=== PATIENT | female | born 1955 | race Asian ===

== ENCOUNTER 2022-11-06 18:20 | Outpatient (CLI) | payer MEDICARE, OTHER | END 2022-11-06 23:59 | disposition left against medical advice (07) | LOC: EMS 18:20 | DX: S69.92XA Unspecified injury of left wrist, hand and finger(s), initial encounter (principal); W18.30XA Fall on same level, unspecified, initial encounter; Y92.009 Unspecified place in unspecified non-institutional (private) residence as the place of occurrence of the external cause ==

== ENCOUNTER 2023-06-27 08:19 | Outpatient (CLI) | payer MEDICARE | END 2023-06-27 23:59 | disposition critical access hospital (66) | LOC: EMS 08:19 | DX: R41.82 Altered mental status, unspecified (principal); E16.2 Hypoglycemia, unspecified; R17 Unspecified jaundice; R47.81 Slurred speech; R61 Generalized hyperhidrosis; R00.0 Tachycardia, unspecified | CPT/HCPCS: A0425; A0427 ==

== ENCOUNTER 2023-06-27 08:45 | Inpatient (IN) | payer MEDICARE ==
[2023-06-27] MEDS: THIAMINE INJ 100 MG, MAGNESIUM SULFATE 2 GM, MULTIVITAMIN 10 ML, FOLIC ACID INJ 1 MG in... IV STA (09:41)
[2023-06-27 09:45] LABS: BASOPHILS % (AUTO) 0.1 %; EOSINOPHILS % (AUTO) 0.2 %; HCT - HEMATOCRIT 30.9 % (37.0-47.0); HGB - HEMOGLOBIN 11.4 g/dL (12.0-16.0); LYMPHOCYTES % (AUTO) 2.4 %; MEAN CORPUSCULAR HEMOGLOBIN 34.3 pg (27.0-31.0); MEAN CORPUSCULAR HGB CONC 36.9 g/dL (32.0-36.0); MEAN CORPUSCULAR VOLUME 93.1 fL (81.0-99.0); MEAN PLATELET VOLUME 12.3 fL (7.9-10.8); MONOCYTES % (AUTO) 5.6 %; NEUTROPHILS % (AUTO) 90.5 %; PLT - PLATELET COUNT 44 10^3/uL (130-450); RED BLOOD COUNT 3.32 10^6/uL (4.20-5.40); RED CELL DISTRIBUTION WIDTH 15.9 % (12.0-15.0); WHITE BLOOD COUNT 11.9 x10^3/uL (4.8-10.8)
[2023-06-27 10:04] LABS: ETOH - ETHANOL < 10.0 mg/dL; LIPASE 40 U/L (11-82)
[2023-06-27 10:09] LABS: ALBUMIN 2.5 g/dL (3.2-5.5); ALBUMIN/GLOBULIN RATIO 0.8 (1.0-2.2); ALKALINE PHOSPHATASE 315 IU/L (42-121); ALT ALANINE AMINOTRANSFERASE 49 IU/L (10-60); AST ASPARTATE AMINOTRANSFERASE 110 IU/L (10-42); BILIRUBIN,TOTAL 8.1 mg/dL (0.2-1.0); BUN - BLOOD UREA NITROGEN 40 mg/dL (6-20); CALCIUM 7.8 mg/dL (8.5-10.3); CARBON DIOXIDE - CO2 25 mmol/L (21-32); CHLORIDE 76 mmol/L (101-111); CREATININE 4.5 mg/dL (0.6-1.3); GFR - MDRD 10 (>89); GLUCOSE 109 mg/dL (74-104); POTASSIUM 4.2 mmol/L (3.5-4.5); SODIUM 115 mmol/L (135-145); TOTAL PROTEIN 5.6 g/dL (6.4-8.9)
--- NOTE | 2023-06-27 10:11 | ED Physician Documentation ---
History of Present Illness - Stated complaint Stated Complaint: SLURRED SPEECH - Chief complaint Chief Complaint: General - History obtained from History obtained from: Patient, EMS - History of Present Illness Timing: Today - Additonal information Additional information: Angelic hatch is a 68-year-old female with regular and heavy alcohol use who has stopped drinking 6 days ago. She reports no untoward effects from the withdrawal itself she denies withdrawal seizure or hallucinations. She reports that she was not feeling well with bodyaches and decided to stop drinking. She has not eaten anything for 6 days. She has been drinking water. She denies any any medication use and works full-time as a counselor. The patient admits to prior section denies any allergies to medicines denies any medication use. Today the patient called her daughter was having a difficult time speaking and the medics were summoned to her house where they discovered a blood sugar of 38. The patient was given 500 mL of D10 with resolution of her symptoms. She is currently compos mentis and cooperative. Review of Systems Constitutional: reports: Myalgias, Fatigue, Sweats. denies: Fever, Chills Eyes: denies: Decreased vision Ears: denies: Ear pain Nose: denies: Rhinorrhea / runny nose, Congestion Throat: denies: Sore throat Cardiac: denies: Chest pain / pressure, Palpitations Respiratory: denies: Dyspnea, Cough GI: denies: Abdominal Pain, Nausea, Vomiting, Constipation, Diarrhea : denies: Dysuria, Frequency Skin: denies: Rash Musculoskeletal: denies: Neck pain, Back pain, Extremity pain Neurologic: reports: Difficulty speaking (resolved). denies: Generalized weakness, Focal weakness, Numbness PD PAST MEDICAL HISTORY - Past Medical History Past Medical History: Yes Other Past Medical History: Alcohol abuse - Past Surgical History Past Surgical History: No - Present Medications Home Medications: Ambulatory Orders Medication Instructions Recorded Confirmed No Known Home Medications 06/27/23 06/27/23 - Allergies Allergies/Adverse Reactions: Allergies Allergy/AdvReac Type Severity Reaction Status Date / Time No Known Drug Allergies Allergy Verified 06/27/23 08:56 - Social History Does the pt smoke?: No Smoking Status: Never smoker Does the pt drink ETOH?: Yes ETOH Use: Liquor Does the pt have substance abuse?: No PD ED PE NORMAL - Vitals Vital signs reviewed: Yes (hypesrtensive ) - General General: Alert and oriented X 3, No acute distress, Well developed/nourished, Other (Thin 68 y/o female alert and cooperative with scleral icterus mild and parched mucous membranes. ) - HEENT HEENT: Atraumatic, PERRL, EOMI - Neck Neck: Supple, no meningeal sign, No bony TTP - Cardiac Cardiac: RRR, No murmur - Respiratory Respiratory: No respiratory distress, Clear bilaterally - Abdomen Abdomen: Normal bowel sounds, Soft, Non tender, Non distended, No organomegaly - Back Back: No CVA TTP, No spinal TTP - Derm Derm: Normal color, Warm and dry, No rash, Other (skin tenting is present ) - Extremities Extremities: No deformity, No edema - Neuro Neuro: Alert and oriented X 3, counseling department chair 2-12 intact, No motor deficit, No sensory deficit, Normal speech Eye Opening: Spontaneous Motor: Obeys Commands Verbal: Oriented GCS Score: 15 - Psych Psych: Normal mood, Normal affect Results - Vitals Vitals: Vital Signs - 24 hr 06/27/23 06/27/23 06/27/23 08:46 10:53 12:11 Temperature 36.6 C Heart Rate 100 104 H 93 Respiratory 16 16 Rate Blood Pressure 125/90 H 108/65 110/85 H O2 Saturation 98 97 99 Oxygen O2 Source Room air - Labs Labs: Laboratory Tests 06/27/23 06/27/23 06/27/23 09:37 09:37 09:37 WBC 11.9 H RBC 3.32 L Hgb 11.4 L Hct 30.9 L MCV 93.1 MCH 34.3 H MCHC 36.9 H RDW 15.9 H Plt Count 44 L MPV 12.3 H Neut # (Auto) Not Reportable Lymph # (Auto) Not Reportable [place] # (Auto) Not Reportable Eos # (Auto) Not Reportable Baso # (Auto) Not Reportable Absolute Nucleated RBC Not Reportable Total Counted 100 Band Neuts % (Manual) 34 H Abnorm Lymph % (Manual) 0 Metamyelocytes % 11 H Nucleated RBC % Not Reportable Neutrophils # (Manual) 9.6 H Lymphocytes # (Manual) 0.7 L Monocytes # (Manual) 0.2 Eosinophils # (Manual) 0.0 Basophils # (Manual) 0.0 Differential Comment MANUAL DIFFERENTIAL Manual Slide Review Indicated WBC Morphology 1+ TOXIC GRANULATION Platelet Estimate DECREASED (<130,000) Platelet Morphology 1+ LARGE PLATELETS RBC Morph Micro Appear 1+ TARGET CELLS PT 14.1 H INR 1.3 H Sodium 115 L* Potassium 4.2 Chloride 76 L* Carbon Dioxide 25 Anion Gap 14.0 H BUN 40 H Creatinine 4.5 H Estimated GFR (MDRD) 10 L Glucose 109 H Lactic Acid Calcium 7.8 L Total Bilirubin 8.1 H AST 110 H ALT 49 Alkaline Phosphatase 315 H Total Protein 5.6 L Albumin 2.5 L Globulin 3.1 Albumin/Globulin Ratio 0.8 L Lipase 40 Urine Color Urine Clarity Urine pH Ur Specific [place] Urine Protein Urine Glucose (UA) Urine Ketones Urine Occult Blood Urine Nitrite Urine Bilirubin Urine Urobilinogen Ur Leukocyte Esterase Urine RBC Urine WBC Ur Epithelial Cells Ur Squamous Epith Cells Urine Bacteria Urine Casts Ur Microscopic Review Urine Culture Comments Ethyl Alcohol < 10.0 06/27/23 06/27/23 10:36 11:00 WBC RBC Hgb Hct MCV MCH MCHC RDW Plt Count MPV Neut # (Auto) Lymph # (Auto) [place] # (Auto) Eos # (Auto) Baso # (Auto) Absolute Nucleated RBC Total Counted Band Neuts % (Manual) Abnorm Lymph % (Manual) Metamyelocytes % Nucleated RBC % Neutrophils # (Manual) Lymphocytes # (Manual) Monocytes # (Manual) Eosinophils # (Manual) Basophils # (Manual) Differential Comment Manual Slide Review WBC Morphology Platelet Estimate Platelet Morphology RBC Morph Micro Appear PT INR Sodium Potassium Chloride Carbon Dioxide Anion Gap BUN Creatinine Estimated GFR (MDRD) Glucose Lactic Acid 1.7 Calcium Total Bilirubin AST ALT Alkaline Phosphatase Total Protein Albumin Globulin Albumin/Globulin Ratio Lipase Urine Color YELLOW Urine Clarity CLOUDY Urine pH 6.5 Ur Specific [place] 1.015 Urine Protein 100 H Urine Glucose (UA) NEGATIVE Urine Ketones NEGATIVE Urine Occult Blood MODERATE H Urine Nitrite NEGATIVE Urine Bilirubin MODERATE H Urine Urobilinogen 1 (NORMAL) Ur Leukocyte Esterase MODERATE H Urine RBC 11-25 H Urine WBC >25 H Ur Epithelial Cells FEW Transitional Ur Squamous Epith Cells NONE SEEN Urine Bacteria Many H Urine Casts 0-2 Granular Casts Ur Microscopic Review INDICATED Urine Culture Comments INDICATED Ethyl Alcohol Procedures - IVC sono (time) 0900 Bedside IVC sono: IVC measures (cm) (0.93), Dehydration (est 2 liter deficit after 500ml given) PD Medical Decision Making - ED course Complexity details: reviewed results, re-evaluated patient, considered differential, d/w patient Reviewed Lab Results: We reviewed a complete blood count showing an elevated white blood cell count of 11.9 depressed hemoglobin and hematocrit 11.4 and 30.9 respectively platelet count is low at 44,000 there are 34% bands present in the specimen. The MCV is normal at 93.1. The RDW elevated at 15.9. I interpret these laboratory results to indicate a level of anemia especially with the thrombocytopenia this is likely direct effects of alcohol on the patient's bone marrow. The 34% bands are concerning for occult infection. Chemistries show a critically low sodium at 115 and critically low chloride at 76 and normal potassium at 4.2 and a carbon dioxide of 25 the BUN is elevated at 40 creatinine elevated at 4.5 calcium low at 7.8 total bilirubin markedly elevated to 8.1 AST elevated at 110 alkaline phosphatase elevated 315 total protein is low at 5.6 albumin low at 2.5. Albumin to globulin ratio low at 0.8. These laboratory chemistry results are concerning for marked hyponatremia likely related to alcohol use. There are no comparisons for the laboratory studies on this patient. Her liver functions are consistent with alcoholic induced hepatitis. Without comparison for kidney function it is difficult to determine whether she may just have an element of acute kidney injury related to dehydration. Ethyl alcohol is less than 10. My interpretation of these laboratory results are a critical illness with critically low sodium and evidence of acute kidney injury along with evidence of alcoholic liver disease. These laboratory results indicate a need for ongoing treatment and admission to the hospital. ED course: 68-year-old Angelic also with profound hyponatremia likely related to alcoholic liver disease. Here in the emergency department she is administered a banana bag and arrangements are made for admission to the hospital.Today I am not finding evidence of acute alcohol withdrawal syndrome and this is consistent with the patient's history of no alcohol for 6 days. Departure - Departure Disposition: 67 [facility] DC/Xfer Clinical Impression: Hyponatremia, Acute alcoholic liver disease, Acute kidney injury, Hypoglycemia, ketotic UTI (urinary tract infection) Qualifiers: Urinary tract infection type: acute cystitis Hematuria presence: with hematuria Qualified Code(s): N30.01 - Acute cystitis with hematuria Condition: Fair Forms: PCP List
[2023-06-27 10:12] LABS: SLIDE REVIEW? Indicated
[2023-06-27 10:19] LABS: ABNORMAL LYMPHS % (MANUAL) 0 %
[2023-06-27 10:23] LABS: BAND NEUTROPHILS % (MANUAL) 34 %; LYMPHOCYTES # (MANUAL) 0.7 10^3/uL (1.5-3.5); LYMPHOCYTES % (MANUAL) 6 %; METAMYELOCYTES % (MANUAL) 11 %; MONOCYTES # (MANUAL) 0.2 10^3/uL (0.0-1.0); NEUTROPHILS # (MANUAL) 9.6 10^3/uL (1.5-6.6)
[2023-06-27 10:28] LABS: DIFFERENTIAL COMMENT MANUAL DIFFERENTIAL; PLATELET ESTIMATE, MANUAL DECREASED (<130,000) (NORMAL); PLATELET MORPHOLOGY 1+ LARGE PLATELETS (NORMAL); WBC MORPHOLOGY (MULTIPLE) 1+ TOXIC GRANULATION (NORMAL)
[2023-06-27 10:57] LABS: INR 1.3 (0.8-1.2); PT - PROTHROMBIN TIME 14.1 secs (9.9-12.6)
[2023-06-27 11:04] LABS: BILIRUBIN,URINE MODERATE (NEGATIVE); GLUCOSE, URINE (UA) NEGATIVE (NEGATIVE); KETONES,URINE (UA) NEGATIVE (NEGATIVE); LEUKOCYTE ESTERASE, URINE MODERATE (NEGATIVE); NITRITE,URINE NEGATIVE (NEGATIVE); OCCULT BLOOD,URINE MODERATE (NEGATIVE); PH,URINE 6.5 PH (5.0-7.5); PROTEIN,URINE 100 mg/dL (NEGATIVE); UROBILINOGEN,URINE 1 (NORMAL) E.U./dL (NORMAL)
[2023-06-27 11:08] LABS: CLARITY,URINE CLOUDY (CLEAR)
[2023-06-27 11:15] LABS: SQUAMOUS EPITHELIAL CELL,UR NONE SEEN (<= Few); WBC,URINE >25 /HPF (0-5)
[2023-06-27 11:16] LABS: BACTERIA,URINE Many /HPF (None Seen); CASTS, URINE 0-2 Granular Casts /LPF; EPITHELIAL CELLS,UR FEW Transitional /HPF (<= Few)
--- NOTE | 2023-06-27 11:34 | XRAY Report ---
PROCEDURE: Chest 1V INDICATIONS: chest pain TECHNIQUE: One view of the chest was acquired. COMPARISON: None. FINDINGS: Surgical changes and devices: None. Lungs and pleura: No pleural effusions or pneumothorax. Lungs are clear. Mediastinum: Mediastinal contours appear normal. Heart size is normal. Bones and chest wall: No suspicious bony lesions. Overlying soft tissues appear unremarkable. IMPRESSION: No acute cardiopulmonary process. Reviewed by: Dylan Romero MD on 06/27/2023 11:33 AM PDT Approved by: Dylan Romero MD on 06/27/2023 11:33 AM PDT Station ID: [id number]
--- NOTE | 2023-06-27 12:32 | HISTORY & PHYSICAL EXAMINATION ---
Chief Complaint - Chief Complaint Chief Complaint: Slurred Speech History of Present Illness - Admitted From Admitted From:: Emergency Room - History Obtained From Records Reviewed: Yes History obtained from: Patient and Emergency Room Physician - History of Present Illness HPI Comment/Other: Angelic Potter is a 68-year-old woman who presented to the emergency room with a chief complaint of slurred speech. She reports that she stopped eating a pproximately three days ago. She reports she drinks two gin and tonics each night. Patient reportedly called her daughter and informed her shes having difficulty speaking. Her daughter called EMS service and when EMS service arrived, they found her blood sugar to be 38. She was given 500 mL of 10 with resolution of her symptoms.Patient is alert and oriented person time place and situation. She denies fever, chills. She denies abdominal pain. She has no complaints at this time. Initial laboratory up in emergency room revealed a serum sodium of 115, and AI and gap of 14, CM creatinine a 4.5, BUN 40 and a serum glucose of 109. AST is elevated at 110, ALT is 49 and Ill be when its 2.5. PT is 14.1 and INR is 1.3.Blood count was elevated at 11.9 and hematocrit was 30.9. Platelet count is 44Blood cultures were drawn in the emergency room and are pending.Patient received 1 g of ceftriaxone in the emergency room. History - Past Medical History Other Past Medical History: Alcohol abuse Meds/Allgy - Home Medications Home Medications: Ambulatory Orders Medication Instructions Recorded Confirmed No Known Home Medications 06/27/23 06/27/23 - Allergies Allergies/Adverse Reactions: Allergies Allergy/AdvReac Type Severity Reaction Status Date / Time No Known Drug Allergies Allergy Verified 06/27/23 08:56 Review of Systems - Constitutional Constitutional: reports: Fatigue - Neurological Neurological: reports: General weakness, Slurred speech Exam - Vital Signs Vital Signs: Vital Signs x48h Temp Pulse Resp BP Pulse Ox 06/27/23 12:11 93 110/85 H 99 06/27/23 10:53 104 H 16 108/65 97 06/27/23 08:46 36.6 C 100 16 125/90 H 98 - Physical Exam General Appearance: positive: No acute distress, Alert Eyes Bilateral: positive: Other (Positive mild scleral icterus) Neck: positive: No JVD Conclusion/Plan - Problem List (1) Hyponatremia Conclusion/Plan: Patient presented to the emergency room with a serum sodium of 115 she has severe hyponatremia and warrants monitoring in the intensive care unit. Plan is to admit her to the intensive care unit for close hemodynamic monitoring and follow serum sodium serially. This is most likely a chronic process. Given the severity of her hyponatremia she is at risk for seizure and osmotic demyelination syndrome. It is also likely that patient abuses alcohol and her lack of protein increases the risk of osmotic demyelinization syndrome. (2) Acute kidney injury Conclusion/Plan: Etiology is not clear but most likely related to poor perfusion/dehydration. Patient reports she has little if anything to eat over the last 3 days. Plan is hydration with normal saline. Rate of normal saline will be conserva tive in the at first to determine how quickly her serum sodium increases with IV fluids. Continue to monitor BUNs/creatinine. Avoid nephrotoxic agents. (3) Elevated transaminase level Conclusion/Plan: Etiology of liver failure is not clear but may be related to the fact the patient has not been eating and chronic alcohol abuse. Continue to monitor transaminases. Patient encouraged to eat her meals. (4) UTI (urinary tract infection) Conclusion/Plan: White blood cell count on admission was 11.9 K and urinalysis consistent with a urinary tract infection. Continue ceftriaxone 1 g daily. Qualifiers: Urinary tract infection type: acute cystitis Hematuria presence: with hematuria Qualified Code(s): N30.01 - Acute cystitis with hematuria (5) Thrombocytopenia Conclusion/Plan: Platelet count is 44 K. Continue to monitor. (6) Anemia Conclusion/Plan: Hemoglobin/hematocrit is 11.4/30.9. Etiology is not clear but may be related to poor nutrition and critical illness. Continue to monitor. - Lab Results Fish Bones: 06/27/23 09:37 06/28/23 04:38
[2023-06-27] MEDS: cefTRIAXone 1 GM in SODIUM CHLORIDE 0.9% MINIBAG 100 ML IV STA (13:06)
[2023-06-27] MEDS: SODIUM CHLORIDE 0.9% 1,000 ML IV SCH (13:06)
[2023-06-27] MEDS: SODIUM CHLORIDE FLUSH 0.9% 10 ML SYRINGE IVP SCH (16:14)
[2023-06-27] MEDS: ethyl alcohoL 62% SWAB AMPULE NAS SCH (22:12)
[2023-06-27 22:53] LABS: ALBUMIN 2.4 g/dL (3.2-5.5); ALBUMIN/GLOBULIN RATIO 0.9 (1.0-2.2); BILIRUBIN,TOTAL 8.5 mg/dL (0.2-1.0); CALCIUM 7.7 mg/dL (8.5-10.3); CREATININE 4.2 mg/dL (0.6-1.3); POTASSIUM 4.6 mmol/L (3.5-4.5); TOTAL PROTEIN 5.2 g/dL (6.4-8.9)
--- NOTE | 2023-06-27 23:36 | PROVIDER PROGRESS NOTE ---
Finished Garment Inspector Note - Finished Garment Inspector Note Finished Garment Inspector Note: nurse called Na down to 114 chart reviewed plan of care not showing in HP but ED note and orders and labs reviewed Pt admitted this morning with Na of 115 received NS IVF improved to 118-117 now down to 114 again. Per nurse, pt completely awake and alert x 3 with no Ams Pt also has positive b/c for e coli possible diagnosis of uti on rocephin vss and no AMS pt has received iv alb, will increase ivf rate to 125 ad recheck in 2 hours. if furhter deterioration or AMS, can consider nephrolog consult and / or hypertonic saline. will request neurochecks, pt in ICU
--- NOTE | 2023-06-27 23:43 | PROVIDER PROGRESS NOTE ---
Paver Note - Paver Note Paver Note: new orders are being entered by Dr. Mccartney. Nurse was unaware. fluid has been changed to d5NS at 125. asked nurse to contact Dr. Mccartney to continue with his original plan of care and moving forward and to avoid conflicting orders. discussed with nurse in detait
[2023-06-28] MEDS: ALBUMIN 25% 12.5 GM/50 ML VIAL IV STA (00:20)
[2023-06-28] MEDS: DEXTROSE 5%-0.9% NACL 1,000 ML IV SCH (00:29)
[2023-06-28] MEDS: ALBUMIN 25% 12.5 GM/50 ML VIAL IV ONE (01:32)
[2023-06-28 01:53] LABS: CALCIUM 7.2 mg/dL (8.5-10.3); CREATININE 4.3 mg/dL (0.6-1.3); POTASSIUM 4.5 mmol/L (3.5-4.5)
[2023-06-28 08:29] LABS: CALCIUM, IONIZED 0.93 mmol/L (1.15-1.33); VBG PH 7.489 (7.31-7.41)
[2023-06-28 08:45] LABS: INR 1.4 (0.8-1.2); PT - PROTHROMBIN TIME 15.2 secs (9.9-12.6)
[2023-06-28 08:46] LABS: MAGNESIUM 1.8 mg/dL (1.7-2.3)
[2023-06-28 08:53] LABS: PARTIAL THROMBOPLASTIN TIME 31.7 secs (24.9-33.3)
[2023-06-28 09:03] LABS: ALBUMIN 2.3 g/dL (3.2-5.5); ALKALINE PHOSPHATASE 309 IU/L (42-121); ALT ALANINE AMINOTRANSFERASE 36 IU/L (10-60); AST ASPARTATE AMINOTRANSFERASE 83 IU/L (10-42); BILIRUBIN,TOTAL 8.5 mg/dL (0.2-1.0); BUN - BLOOD UREA NITROGEN 41 mg/dL (6-20); CALCIUM 7.4 mg/dL (8.5-10.3); CARBON DIOXIDE - CO2 21 mmol/L (21-32); CHLORIDE 85 mmol/L (101-111); CREATININE 4.4 mg/dL (0.6-1.3); GFR - MDRD 10 (>89); GLUCOSE 96 mg/dL (74-104); PHOSPHORUS < 1.0 mg/dL (2.5-5.0); SODIUM 116 mmol/L (135-145); TOTAL PROTEIN 4.6 g/dL (6.4-8.9)
[2023-06-28] MEDS: ALBUMIN 25% 12.5 GM/50 ML VIAL IV SCH ×2 (10:03→13:39)
--- NOTE | 2023-06-28 12:12 | XRAY Report ---
PROCEDURE: Chest for Line Placement INDICATIONS: Status post central line placement. TECHNIQUE: One view of the chest was acquired. COMPARISON: 06/27/2023. FINDINGS: Surgical changes and devices: Right central venous catheter with tip projecting over the cavoatrial junction versus proximal right atrium.. Lungs and pleura: No pleural effusions or pneumothorax. Mild left basilar atelectasis. Lungs are oth erwise clear. Mediastinum: Mediastinal contours appear normal. Heart size is normal. Bones and chest wall: No suspicious bony lesions. Overlying soft tissues appear unremarkable. IMPRESSION: Right central venous catheter with tip projecting over the cavoatrial junction versus proximal right atrium. Reviewed by: Bernabe Marin MD on 06/28/2023 12:11 PM PDT Approved by: Bernabe Marin MD on 06/28/2023 12:11 PM PDT Station ID: [id number]
--- NOTE | 2023-06-28 12:30 | PROVIDER PROGRESS NOTE ---
Assessment/Plan - Problem List (1) Hyponatremia Assessment/Plan: Patient presented to the emergency room with a serum sodium of 115 she has severe hyponatremia and warrants monitoring in the intensive care unit. Plan is to admit her to the intensive care unit for close hemodynamic monitoring and follow serum sodium serially. This is most likely a chronic process. Given the severity of her hyponatremia she is at risk for seizure and osmotic demyelination syndrome. It is also likely that patient abuses alcohol and her lack of protein increases the risk of osmotic demyelinization syndrome. Continue to monitor serum sodium serially and replace sodium as needed with 3% saline and normal saline. (2) Acute kidney injury Conclusion/Plan: Etiology is not clear but most likely related to poor perfusion/dehydration. Patient reports she has little if anything to eat over the last 3 days.I cannot exclude hepatorenal syndrome at this time. Plan is hydration with normal saline. Rate of normal saline will be conservative in the at first to determine how quickly her serum sodium increases with IV fluids. Continue to monitor BUNs/creatinine. Avoid nephrotoxic agents. Treatment has been initiated with albumin and norepinephrine. Patient currently has a life-threatening illness requiring monitoring in the ICU setting. Given her degree of renal failure and liver dysfunction she has a life-threatening condition and warrants continued monitoring in intensive care unit. (3) Elevated transaminase level Conclusion/Plan: Etiology of liver failure is not clear but may be related to the fact the patient has not been eating and chronic alcohol abuse. Continue to monitor transaminases. Patient encouraged to eat her meals. (4) UTI (urinary tract infection) Conclusion/Plan: White blood cell count on admission was 11.9 K and urinalysis consistent with a urinary tract infection. Continue ceftriaxone 1 g daily. Qualifiers: Urinary tract infection type: acute cystitis Hematuria presence: with hematuria Qualified Code(s): N30.01 - Acute cystitis with hematuria (5) Thrombocytopenia Conclusion/Plan: Platelet count is 44 K. Continue to monitor. (6) Anemia Conclusion/Plan: Hemoglobin/hematocrit is 11.4/30.9. Etiology is not clear but may be related to poor nutrition and critical illness. Continue to monitor. Time spent excluding time for procedures: 42 minutes. - Current Meds Current Meds: Current Medications Generic Name Dose Route Start Last Admin Trade Name Freq PRN Reason Stop Dose Admin Alcohol 1 amp 06/27/23 21:00 06/28/23 10:03 Ethyl Alcohol 62% Swab Ampule NATHAN 1 amp BID JAME Administration Dextrose/Sodium Chloride 1,000 mls @ 125 mls/hr 06/27/23 23:45 06/28/23 00:29 D5ns IV 125 mls/hr .Q8H JAME Administration Albumin Human 12.5 gm in 50 mls @ 50 mls/hr 06/28/23 10:00 06/28/23 10:03 Albuminar-25 IV 06/30/23 04:59 50 mls/hr Q6H JAME Administration Sodium Chloride 10 ml 06/27/23 17:00 06/28/23 10:03 Sodium Chloride Flush 0.9% 10 Ml Syringe IVP 10 ml 0100,0900,1700 JAME Administration - Lab Result Fish Bone Diagrams: 06/27/23 09:37 06/28/23 21:30 - Additional Planning My Orders: My Active Orders 06/27/23 12:35 Activity Orders [RC] Q2HR IO [RC] IOSHIFT Incentive Spirometry - RT [RC] .tid Initiate Bowel Care Protocol [RC] .protocol Initiate Line Care Protocol [RC] QSCOFT Initiate Personal Care Protoco [RC] .protocol Initiate Pneumonia Vaccine Scr [RC] ONCE Oxygen Therapy [RC] .PRN Vital Signs [RC] Q1H Sodium Chloride Flush 0.9% [Normal Saline Flush 0.9%] 10 ml IVP PRN PRN Code Status [OTHERS] Routine Condition of Patient [OTHERS] Routine DVT Prophylaxis [OTHERS] Routine 06/27/23 12:41 SCDs [RC] QSHIFT 06/27/23 Dinner Regular Diet [DIET] 06/27/23 17:00 Sodium Chloride Flush 0.9% [Normal Saline Flush 0.9%] 10 ml IVP 0100,0900,1700 06/27/23 20:15 Blood Glucose Checks - Eating [RC] 0800,1200,1700,2100 Initiate Hypoglycemia Protocol [RC] .protocol 06/27/23 21:00 ethyl alcohoL 62% swab [NoZin] 1 amp NATHAN BID 06/27/23 23:07 Fluid Restriction [RC] IOSHIFT 06/27/23 23:09 Daily Weight [RC] 0600 Miscellaenous Nursing Order [RC] QSHIFT 06/27/23 23:45 Dextrose 5%-0.9% NaCl [D5ns] 1,000 ml IV 125 mls/hr 06/28/23 10:00 Albumin 25% [Albuminar-25] 12.5 gm in 50 ml IV Q6H Albumin 25% [Albuminar-25] 12.5 gm in 50 ml IV Q6H 06/28/23 10:34 Initiate Line Care Protocol [RC] QSHIFT 06/28/23 13:00 cefTRIAXone [Rocephin] 1 gm Sodium Chloride 0.9% Minibag [Normal Saline 0.9% Minibag] 100 ml IV 1300 06/29/23 08:30 CBC - COMP BLD CT W/AUTO DIFF [HEME] Routine Subjective - Subjective Patient Reports: Other (Alert. Denies chest pain and shortness of breath. Complains of abdominal discomfort most consistent with gas pain.) Objective Vital Signs: Vital Signs - 24 hr 06/27/23 06/27/23 06/27/23 13:35 15:00 16:00 Temperature 36.7 C Heart Rate [ 99 99 100 Brachial] Heart Rate [ Monitoring electrodes] Respiratory 16 18 20 Rate Blood Pressure 124/82 H 118/79 125/78 [Left Brachial artery] O2 Saturation 98 98 99 06/27/23 06/27/23 06/27/23 17:00 18:00 19:00 Temperature 36.8 C 36.9 C Heart Rate [ 103 H 109 H 108 H Brachial] Heart Rate [ Monitoring electrodes] Respiratory 17 20 11 L Rate Blood Pressure 118/88 H 110/59 L 103/69 [Left Brachial artery] O2 Saturation 97 100 96 06/27/23 06/27/23 06/27/23 20:00 21:00 22:00 Temperature 37.1 C Heart Rate [ 106 H 96 92 Brachial] Heart Rate [ Monitoring electrodes] Respiratory 16 11 L 19 Rate Blood Pressure 109/65 99/61 108/67 [Left Brachial artery] O2 Saturation 99 97 97 06/27/23 06/28/23 06/28/23 23:00 00:00 02:00 Temperature 37.1 C Heart Rate [ 99 Brachial] Heart Rate [ 102 H 110 H Monitoring electrodes] Respiratory 28 H 17 13 Rate Blood Pressure 100/52 L 102/77 101/58 L [Left Brachial artery] O2 Saturation 97 98 94 06/28/23 06/28/23 06/28/23 05:00 06:00 07:00 Temperature 37.1 C Heart Rate [ Brachial] Heart Rate [ 109 H 110 H 101 H Monitoring electrodes] Respiratory 19 15 16 Rate Blood Pressure 101/58 L 107/69 99/66 [Left Brachial artery] O2 Saturation 84 L 95 95 06/28/23 06/28/23 06/28/23 08:00 09:00 10:18 Temperature 36.7 C Heart Rate [ Brachial] Heart Rate [ 110 H 105 H 102 H Monitoring electrodes] Respiratory 12 20 17 Rate Blood Pressure 98/85 H 105/75 108/68 [Left Brachial artery] O2 Saturation 93 06/28/23 06/28/23 06/28/23 11:00 11:10 11:15 Temperature Heart Rate [ Brachial] Heart Rate [ 100 100 101 H Monitoring electrodes] Respiratory 17 17 16 Rate Blood Pressure 115/70 105/68 [Left Brachial artery] O2 Saturation 96 97 99 Oxygen O2 Source Room air I&O (Last 24 Hrs): Intake and Output Totals x24h 06/26/23 06/27/23 06/28/23 23:59 23:59 23:59 Intake Total 1833.95 1182.25 Output Total 100 Balance 1833.95 1082.25 General: Alert, Oriented x3, No acute distress HEENT: Atraumatic Neck: Supple, No JVD Lymphatic: no adenopathy Neuro: Alert, Focal Deficits Cardiovascular: Other (Positive S1-S2 no extra heart sounds.) Respiratory: Other (Good air exchange in all lung meek no wheezing no crackles) Abdomen: Other (Positive bowel sounds. Soft nontender no guarding no rebound.) Extremities: No cyanosis, No edema Skin: No rashes - Results Results: Laboratory Results WBC 11.9 x10^3/uL (4.8-10.8) H 06/27/23 09:37 RBC 3.32 10^6/uL (4.20-5.40) L 06/27/23 09:37 Hgb 11.4 g/dL (12.0-16.0) L 06/27/23 09:37 Hct 30.9 % (37.0-47.0) L 06/27/23 09:37 MCV 93.1 fL (81.0-99.0) 06/27/23 09:37 MCH 34.3 pg (27.0-31.0) H 06/27/23 09:37 MCHC 36.9 g/dL (32.0-36.0) H 06/27/23 09:37 RDW 15.9 % (12.0-15.0) H 06/27/23 09:37 Plt Count 44 10^3/uL (130-450) L 06/27/23 09:37 MPV 12.3 fL (7.9-10.8) H 06/27/23 09:37 Neut # (Auto) Not Reportable 06/27/23 09:37 Lymph # (Auto) Not Reportable 06/27/23 09:37 [place] # (Auto) Not Reportable 06/27/23 09:37 Eos # (Auto) Not Reportable 06/27/23 09:37 Baso # (Auto) Not Reportable 06/27/23 09:37 Absolute Nucleated RBC Not Reportable 06/27/23 09:37 Total Counted 100 06/27/23 09:37 Band Neuts % (Manual) 34 % (0-10) H 06/27/23 09:37 Abnorm Lymph % (Manual) 0 % 06/27/23 09:37 Metamyelocytes % 11 % (-0) H 06/27/23 09:37 Nucleated RBC % Not Reportable 06/27/23 09:37 Neutrophils # (Manual) 9.6 10^3/uL (1.5-6.6) H 06/27/23 09:37 Lymphocytes # (Manual) 0.7 10^3/uL (1.5-3.5) L 06/27/23 09:37 Monocytes # (Manual) 0.2 10^3/uL (0.0-1.0) 06/27/23 09:37 Eosinophils # (Manual) 0.0 10^3/uL (0-0.7) 06/27/23 09:37 Basophils # (Manual) 0.0 10^3/uL (0-0.1) 06/27/23 09:37 Differential Comment MANUAL DIFFERENTIAL 06/27/23 09:37 Manual Slide Review Indicated 06/27/23 09:37 WBC Morphology 1+ TOXIC GRANULATION (NORMAL) 06/27/23 09:37 Platelet Estimate DECREASED (<130,000) (NORMAL) 06/27/23 09:37 Platelet Morphology 1+ LARGE PLATELETS (NORMAL) 06/27/23 09:37 RBC Morph Micro Appear 2+ ANISOCYTOSIS (NORMAL) 2+ TEARDROP CELLS (NORMAL) 1+ TARGET CELLS (NORMAL) 06/27/23 09:37 RBC Morph Micro Appear 2+ ANISOCYTOSIS (NORMAL) 2+ TEARDROP CELLS (NORMAL) 1+ TARGET CELLS (NORMAL) 06/27/23 09:37 RBC Morph Micro Appear 2+ ANISOCYTOSIS (NORMAL) 2+ TEARDROP CELLS (NORMAL) 1+ TARGET CELLS (NORMAL) 06/27/23 09:37 PT 15.2 secs (9.9-12.6) H 06/28/23 08:22 INR 1.4 (0.8-1.2) H 06/28/23 08:22 APTT 31.7 secs (24.9-33.3) 06/28/23 08:22 VBG pH 7.489 (7.31-7.41) H 06/28/23 08:22 Ionized Calcium 0.93 mmol/L (1.15-1.33) L 06/28/23 08:22 Sodium 116 mmol/L (135-145) L* 06/28/23 08:22 Potassium 4.0 mmol/L (3.5-4.5) 06/28/23 08:22 Chloride 85 mmol/L (101-111) L 06/28/23 08:22 Carbon Dioxide 21 mmol/L (21-32) 06/28/23 08:22 Anion Gap 10.0 (6-13) 06/28/23 08:22 BUN 41 mg/dL (6-20) H 06/28/23 08:22 Creatinine 4.4 mg/dL (0.6-1.3) H 06/28/23 08:22 Estimated GFR (MDRD) 10 (>89) L 06/28/23 08:22 Glucose 96 mg/dL (74-104) 06/28/23 08:22 POC Whole Bld Glucose 125 mg/dL (70 - 100) H 06/28/23 07:49 Lactic Acid 1.7 mmol/L (0.5-2.2) 06/27/23 11:00 Calcium 7.4 mg/dL (8.5-10.3) L 06/28/23 08:22 Phosphorus < 1.0 mg/dL (2.5-5.0) L* 06/28/23 08:22 Magnesium 1.8 mg/dL (1.7-2.3) 06/28/23 08:22 Total Bilirubin 8.5 mg/dL (0.2-1.0) H 06/28/23 08:22 AST 83 IU/L (10-42) H 06/28/23 08:22 ALT 36 IU/L (10-60) 06/28/23 08:22 Alkaline Phosphatase 309 IU/L (42-121) H 06/28/23 08:22 Total Protein 4.6 g/dL (6.4-8.9) L 06/28/23 08:22 Albumin 2.3 g/dL (3.2-5.5) L 06/28/23 08:22 Globulin 2.3 g/dL (2.1-4.2) 06/28/23 08:22 Albumin/Globulin Ratio 1.0 (1.0-2.2) 06/28/23 08:22 Lipase 40 U/L (11-82) 06/27/23 09:37 Urine Color YELLOW 06/27/23 10:36 Urine Clarity CLOUDY (CLEAR) 06/27/23 10:36 Urine pH 6.5 PH (5.0-7.5) 06/27/23 10:36 Ur Specific [place] 1.015 (1.002-1.030) 06/27/23 10:36 Urine Protein 100 mg/dL (NEGATIVE) H 06/27/23 10:36 Urine Glucose (UA) NEGATIVE mg/dL (NEGATIVE) 06/27/23 10:36 Urine Ketones NEGATIVE mg/dL (NEGATIVE) 06/27/23 10:36 Urine Occult Blood MODERATE (NEGATIVE) H 06/27/23 10:36 Urine Nitrite NEGATIVE (NEGATIVE) 06/27/23 10:36 Urine Bilirubin MODERATE (NEGATIVE) H 06/27/23 10:36 Urine Urobilinogen 1 (NORMAL) E.U./dL (NORMAL) 06/27/23 10:36 Ur Leukocyte Esterase MODERATE (NEGATIVE) H 06/27/23 10:36 Urine RBC 11-25 /HPF (0-5) H 06/27/23 10:36 Urine WBC >25 /HPF (0-5) H 06/27/23 10:36 Ur Epithelial Cells FEW Transitional /HPF (<= Few) 06/27/23 10:36 Ur Squamous Epith Cells NONE SEEN (<= Few) 06/27/23 10:36 Urine Bacteria Many /HPF (None Seen) H 06/27/23 10:36 Urine Casts 0-2 Granular Casts /LPF 06/27/23 10:36 Ur Microscopic Review INDICATED 06/27/23 10:36 Urine Culture Comments INDICATED 06/27/23 10:36 Nasal Screen MRSA (PCR) POSITIVE (NEGATIVE) A* 06/27/23 13:50 Ethyl Alcohol < 10.0 mg/dL 06/27/23 09:37
--- NOTE | 2023-06-28 12:30 | PROCEDURE REPORT ---
Hospitalist Procedure Note - Procedure Note Procedure Note: Date of procedure: 06/28/2023 Procedure: Right internal jugular central line placement Consent: Consent was obtained from patient prior to onset of the procedure. See sign consent for details Procedure: Patient was placed in Trendelenburg and an ultrasound was used using sterile technique to identify the right internal jugular vein. 1% lidocaine was used at the site of entrance to anesthetize the skin and underlying tissue. After adequate anesthesia was obtained, a large bore needle was inserted into the skin and advanced until the right internal jugular vein was cannulated. A wire was passed through the needle and the needle was removed. A dilator was passed over the wire and the dilator was removed. A triple-lumen catheter was passed over the wire and hubbed at the skin. The wire was removed and the triple-lumen catheter was sutured in place. There were no complications postprocedure. Chest x-ray verified placement of central line. Diagnosis: 1. Hyponatremia 2. Acute renal failure
[2023-06-28] MEDS: cefTRIAXone 1 GM in SODIUM CHLORIDE 0.9% MINIBAG 100 ML IV SCH (13:23)
--- NOTE | 2023-06-28 16:10 | PHARMACY PROGRESS NOTE ---
- Best Possible Medication History Admit Date and Time: 06/27/23 1235 Processed by: Pharmacy Medication History completed: Yes Patient Interview: Pt unable to participate Secondary Source(s): Caregiver (PT REPORTS NO HOME MEDS, SEARCH OF PRESCRIPTION INSURANCE RECORDS SHOW NO HOME MEDS), Insurance records As the person ultimately responsible for medication therapy, providers are able to order a medication from an existing home medication list in [facility] via the "Reconcile Routine" prior to Confirmation of that medication by it technical support specialist. Such practice is discouraged except when the physician, in their clinical judgment, deems that a medical need exists for a medication without regard to previous use.
[2023-06-28] MEDS ORDERED: ONDANSETRON ODT 4 MG TABLET TL PRN (16:24)
[2023-06-28] MEDS: ONDANSETRON 4 MG/2 ML VIAL IVP PRN (16:36)
[2023-06-28] MEDS: NOREPINEPHRINE/0.9 % NS 8 MG/250 ML BAG IV SCH (19:04)
[2023-06-28] MEDS: SODIUM CHLORIDE FLUSH 0.9% 10 ML SYRINGE IVP PRN (21:32)
[2023-06-28 22:01] LABS: MAGNESIUM 1.8 mg/dL (1.7-2.3)
[2023-06-28 22:10] LABS: BUN - BLOOD UREA NITROGEN 42 mg/dL (6-20); CARBON DIOXIDE - CO2 21 mmol/L (21-32); CHLORIDE 87 mmol/L (101-111); CREATININE 4.3 mg/dL (0.6-1.3); GFR - MDRD 10 (>89); GLUCOSE 168 mg/dL (74-104); PHOSPHORUS < 1.0 mg/dL (2.5-5.0); POTASSIUM 3.7 mmol/L (3.5-4.5); SODIUM 118 mmol/L (135-145)
[2023-06-28] MEDS ORDERED: SODIUM PHOSPHATE 15 MMOL in SODIUM CHLORIDE 0.9% 250 ML IV SCH (23:00)
[2023-06-28] MEDS: NEUTRA-PHOS 250 MG TABLET PO SCH (23:34)
[2023-06-29] MEDS: SODIUM CHLORIDE 0.9% 1,000 ML IV SCH ×2 (00:04→21:03)
--- NOTE | 2023-06-29 02:10 | CT Report ---
PROCEDURE: Abdomen/Pelvis WO INDICATIONS: Abdominal pain TECHNIQUE: A CT scan of the abdomen and pelvis was performed without the use of intravenous contrast. Images we re recorded and evaluated at appropriate window settings. Reformats: coronal and sagittal. For radiat ion dose reduction, the following was used: automated exposure control, adjustment of mA and/or kV ac cording to patient size. COMPARISON: None. FINDINGS: Image quality: Diagnostic. Lower chest: Bilateral right greater than left pleural effusions with subjacent atelectasis.. Liver: No contour-deforming mass. Gallbladder and biliary tree: Distended gallbladder containing small layering calcified stones. Possi ble mild gallbladder wall thickening and pericholecystic fluid. Spleen: No splenomegaly. Pancreas: No pancreatic ductal dilation. Adrenals: No adrenal nodule. Kidneys and ureters: No hydronephrosis. No renal cystic lesion which requires follow up. No solid mas s. Stomach, bowel and peritoneum: No bowel distension. Probable trace perihepatic fluid. Lymph nodes: No central or retroperitoneal adenopathy. Vessels: No infrarenal aortic aneurysm. PELVIS Reproductive organs: Surgical clip in the right adnexal region. Free fluid in the pelvis. Bladder: Bladder is decompressed around a Black catheter in situ.. Pelvic lymph nodes: No pelvic adenopathy by size criteria. Bones: No aggressive osseous abnormality. Other: No significant ventral or inguinal hernia. IMPRESSION: Distended gallbladder with cholelithiasis. Query mild gallbladder wall thickening and pericholecystic fluid. Findings are equivocal for acute cholecystitis on this noncontrast exam. Bilateral right greater than left pleural effusions with subjacent atelectasis. Reviewed by: Petty Herrera MD, PhD on 06/29/2023 2:09 AM PDT Approved by: Petty Herrera MD, PhD on 06/29/2023 2:09 AM PDT Station ID: [id number]
[2023-06-29 05:27] LABS: BASOPHILS % (AUTO) 0.2 %; EOSINOPHILS % (AUTO) 0.3 %; LYMPHOCYTES % (AUTO) 4.2 %; MEAN CORPUSCULAR HEMOGLOBIN 34.3 pg (27.0-31.0); MEAN CORPUSCULAR HGB CONC 36.8 g/dL (32.0-36.0); MEAN CORPUSCULAR VOLUME 93.1 fL (81.0-99.0); MEAN PLATELET VOLUME 12.8 fL (7.9-10.8); MONOCYTES % (AUTO) 5.7 %; NEUTROPHILS % (AUTO) 83.1 %; RED BLOOD COUNT 2.04 10^6/uL (4.20-5.40); WHITE BLOOD COUNT 18.8 x10^3/uL (4.8-10.8)
[2023-06-29 05:39] LABS: PARTIAL THROMBOPLASTIN TIME 31.2 secs (24.9-33.3)
[2023-06-29 05:44] LABS: INR 1.5 (0.8-1.2)
[2023-06-29 05:46] LABS: PLT - PLATELET COUNT 18 10^3/uL (130-450)
[2023-06-29 05:47] LABS: ALBUMIN 3.3 g/dL (3.2-5.5); ALBUMIN/GLOBULIN RATIO 1.7 (1.0-2.2); ALKALINE PHOSPHATASE 272 IU/L (42-121); ALT ALANINE AMINOTRANSFERASE 30 IU/L (10-60); AST ASPARTATE AMINOTRANSFERASE 68 IU/L (10-42); BILIRUBIN,TOTAL 9.1 mg/dL (0.2-1.0); BUN - BLOOD UREA NITROGEN 42 mg/dL (6-20); CARBON DIOXIDE - CO2 21 mmol/L (21-32); CHLORIDE 90 mmol/L (101-111); CREATININE 4.4 mg/dL (0.6-1.3); GFR - MDRD 10 (>89); GLUCOSE 103 mg/dL (74-104); MAGNESIUM 1.7 mg/dL (1.7-2.3); POTASSIUM 4.1 mmol/L (3.5-4.5); SODIUM 121 mmol/L (135-145); TOTAL PROTEIN 5.2 g/dL (6.4-8.9)
[2023-06-29 05:49] LABS: PHOSPHORUS < 1.0 mg/dL (2.5-5.0)
[2023-06-29 05:50] LABS: ABNORMAL LYMPHS % (MANUAL) 0 %; BAND NEUTROPHILS % (MANUAL) 0 %
[2023-06-29 06:32] LABS: LYMPHOCYTES # (MANUAL) 0.2 10^3/uL (1.5-3.5); LYMPHOCYTES % (MANUAL) 1 %; NEUTROPHILS # (MANUAL) 15.6 10^3/uL (1.5-6.6)
[2023-06-29 06:34] LABS: DIFFERENTIAL COMMENT MANUAL DIFFERENTIAL; PLATELET ESTIMATE, MANUAL DECREASED (<130,000) (NORMAL); PLATELET MORPHOLOGY NORMAL APPEARANCE (NORMAL); RBC MORPHOLOGY (MULTIPLE) NORMAL APPEARANCE (NORMAL)
[2023-06-29] MEDS ORDERED: SODIUM PHOSPHATE 15 MMOL in SODIUM CHLORIDE 0.9% 250 ML IV ONE (07:31)
[2023-06-29] MEDS: SODIUM PHOSPHATE 15 MMOL in SODIUM CHLORIDE 0.9% 250 ML IV SCH (08:01)
[2023-06-29] MEDS: MORPHINE 10 MG/ML VIAL IVP PRN (08:18)
[2023-06-29] MEDS ORDERED: SIMETHICONE CHEW 80 MG TABLET PO PRN (09:25)
[2023-06-29 09:38] LABS: CALCIUM, IONIZED 0.95 mmol/L (1.15-1.33); VBG PH 7.349 (7.31-7.41)
[2023-06-29] MEDS: PHYTONADIONE 10 MG/ML AMP IVP STA (09:41)
[2023-06-29] MEDS: SIMETHICONE 40 MG/0.6 ML 15 ML BOTTLE PO PRN (09:51)
[2023-06-29] MEDS ORDERED: MORPHINE 2 MG/ML CARPUJECT IVP PRN (11:30)
--- NOTE | 2023-06-29 11:54 | Discharge Plan ---
Discharge Plan Problem Reviewed?: Yes Disposition: 02 Transfer Acute Care Hosp Condition: Critical Health Concerns: History of Present Illness: Angelic Potter is a 68-year-old woman who presented to the emergency room with a chief complaint of slurred speech. She reports that she stopped eating approximately three days ago. She reports she drinks two gin and tonics each night. Patient reportedly called her daughter and informed her shes having difficulty speaking. Her daughter called EMS service and when EMS service arrived, they found her blood sugar to be 38. She was given 500 mL of 10 with resolution of her symptoms.Patient is alert and oriented person time place and situation. She denies fever, chills. She denies abdominal pain. She has no complaints at this time. Initial laboratory up in emergency room revealed a serum sodium of 115, and AI and gap of 14, CM creatinine a 4.5, BUN 40 and a serum glucose of 109. AST is elevated at 110, ALT is 49 and Ill be when its 2.5. PT is 14.1 and INR is 1.3. Blood count was elevated at 11.9 and hematocrit was 30.9. Platelet count is 44K. Blood cultures were drawn in the emergency room and are pending.Patient received 1 g of ceftriaxone in the emergency room. Hospital Course: Patient was admitted to the intensive care unit and treatment was initiated with normal saline for fluid hydration and ceftriaxone was continued. On hospital day #2 treatment was initiated with albumin and a central line was placed for treatment with norepinephrine for possible hepatorenal syndrome. A CT scan of the abdomen pelvis was performed which revealed a distended gallbladder with cholelithiasis. Patient has a positive Jalloh sign and her white blood cell count has significantly increased.This is concern for cholecystitis. Patient's white blood cell count increased from 11.9 K to 18.8 K and her physical exam was significant for a soft abdomen with a positive Jalloh sign that was new since admission. Antibiotic coverage was broadened with Zosyn. Patient also had a significant decrease in her hematocrit from a baseline of 31 to 19. Platelet count decreased from 44 to 18. The patient has received 1 unit of packed red blood cells and 1 unit of platelets and goal is to obtain a hemoglobin/hematocrit of 8/24 and to increase the platelet count to greater than 50 K. The most recent hematocrit posttransfusion of 1 unit of packed red blood cells and 1 unit of platelets is hemoglobin hematocrit 8.3/23.5 and platelet count is 71 K Patient's initial serum sodium was 115 and over the course of her hospitalization has increased to 121. Throughout her hospitalization the patient has remained alert and oriented to person time place and situation and hemodynamically stable. In the structural test engineer patient received 4 mg of morphine intravenously and since that time patient's mental status has mildly to moderately worsened. Recommend being very conservative with opiates for pain given the fact the patient has hepatic failure and renal failure. The reason for transfer is placement of cholecystectomy tube. Patient has advanced directives. Advance directives were discussed with patient during this hospitalization. Patient is DO NOT RESUSCITATE as stated in her advanced directives. Plan of Treatment: Patient is transferred to the [facility] in [place] for further care. Care Goals: Goal of care is to return to independent living. Assessment: (1) Hyponatremia Assessment/Plan: Patient presented to the emergency room with a serum sodium of 115 she has severe hyponatremia and warrants monitoring in the intensive care unit. Initial serum sodium was 115 and current serum sodium is 121. Recommend continuing to increase the the serum sodium level by 3 to 6 mEq every 24 hours. Given the severity of her hyponatremia she is at risk for seizure and osmotic demyelination syndrome. It is also likely that patient abuses alcohol and her lack of protein increases the risk of osmotic demyelinization syndrome. (2) Acute kidney injury Conclusion/Plan: Etiology is not clear but most likely related to poor perfusion/dehydration. Patient reports she has little if anything to eat over the last 3 days. Hepatorenal syndrome cannot be excluded at this time and the patient has been treated with 120 g of albumin since admission with goal of her receiving 200 g over 48 interval. Per treatment recommendations for hepatorenal syndrome, treatment was also initiated with norepinephrine with goal of a MAP of 85. During her hospitalization she has received fluid hydration with normal saline and for short period of time half-normal saline to avoid a rapid increase in her serum sodium. Continue to monitor BUNs/creatinine. Avoid nephrotoxic agents. Patient currently has a life-threatening illness requiring monitoring in the ICU setting. Given her degree of renal failure and liver dysfunction she has a li fe-threatening condition and warrants continued monitoring in intensive care unit. (3) Elevated transaminase level Conclusion/Plan: Etiology of liver failure is not clear but may be related to the fact the patient has not been eating, possibly hepatorenal syndrome and chronic alcohol abuse. Continue to monitor transaminases. Initially patient was tolerating a diet and then she developed abdominal pain and was made NPO. (4) UTI (urinary tract infection) Conclusion/Plan: White blood cell count on admission was 11.9 K and urinalysis consistent with a urinary tract infection. Continue ceftriaxone 1 g daily. Qualifiers: Urinary tract infection type: acute cystitis Hematuria presence: with hematuria Qualified Code(s): N30.01 - Acute cystitis with hematuria (5) Thrombocytopenia Conclusion/Plan: Initial platelet count was 44 K.Platelet count decreased to 18 K this morning and patient was transfused 1 unit of platelets. (6) Anemia Conclusion/Plan: Initial hemoglobin/hematocrit is 11.4/30.9. Etiology is not clear but may be related to poor nutrition and critical illness. Hemoglobin/hematocrit this morning is 7/19. Patient was transfused 1 unit of packed red blood cells and hemoglobin/hematocrit increased 8/22.9. Repeat hemoglobin/hematocrit is stable at 8.3/23.5. The etiology of patient's hemorrhage is not entirely clear but most likely related to bleeding hemorrhoids. She had a significant episode of hemorrhoidal bleeding in the structural test engineer today. (7) Central Line Patient had a right internal jugular central line placement on June 27, 2022. The line was placed using sterile technique and there were no complications. However, only a 20 cm triple-lumen catheter was available for insertion and the tip of the triple-lumen catheter was in the right ventricle. The central line was retracted approximately 5 cm using sterile technique. I would recommend changing the central line to another central line or placing a PICC line given the fact that the line had to be retracted. No Smoking: If you smoke, Please STOP! Call for help.
[2023-06-29] MEDS: PIPERACILLIN/TAZOBACTAM 2.25 GM in SODIUM CHLORIDE 0.9% MINIBAG 100 ML IV SCH (12:22)
[2023-06-29] MEDS: CALCIUM GLUC 1,000MG/50ML-NACL 1,000 MG/50 ML BAG IV ONE (13:14)
[2023-06-29 13:32] LABS: BASOPHILS % (AUTO) 0.1 %; EOSINOPHILS % (AUTO) 0.2 %; HCT - HEMATOCRIT 22.9 % (37.0-47.0); LYMPHOCYTES % (AUTO) 3.5 %; MEAN CORPUSCULAR HEMOGLOBIN 32.4 pg (27.0-31.0); MEAN CORPUSCULAR HGB CONC 34.9 g/dL (32.0-36.0); MEAN CORPUSCULAR VOLUME 92.7 fL (81.0-99.0); MEAN PLATELET VOLUME 10.1 fL (7.9-10.8); MONOCYTES % (AUTO) 7.2 %; NEUTROPHILS % (AUTO) 83.1 %; PLT - PLATELET COUNT 88 10^3/uL (130-450); RED BLOOD COUNT 2.47 10^6/uL (4.20-5.40); RED CELL DISTRIBUTION WIDTH 16.8 % (12.0-15.0); WHITE BLOOD COUNT 20.6 x10^3/uL (4.8-10.8)
[2023-06-29 13:36] LABS: ABNORMAL LYMPHS % (MANUAL) 0 %
[2023-06-29 13:54] LABS: CALCIUM 7.4 mg/dL (8.5-10.3); CREATININE 4.1 mg/dL (0.6-1.3); MAGNESIUM 1.7 mg/dL (1.7-2.3); PHOSPHORUS 3.8 mg/dL (2.5-5.0); POTASSIUM 3.9 mmol/L (3.5-4.5)
[2023-06-29 13:57] LABS: BAND NEUTROPHILS % (MANUAL) 8 %; EOSINOPHILS # (MANUAL) 0.2 10^3/uL (0-0.7); LYMPHOCYTES # (MANUAL) 1.2 10^3/uL (1.5-3.5); LYMPHOCYTES % (MANUAL) 6 %; MONOCYTES # (MANUAL) 0.8 10^3/uL (0.0-1.0); NEUTROPHILS # (MANUAL) 18.3 10^3/uL (1.5-6.6); NUCLEATED RBC (MANUAL) 2 %
[2023-06-29 13:58] LABS: DIFFERENTIAL COMMENT MANUAL DIFFERENTIAL; RBC MORPHOLOGY (MULTIPLE) 3+ ANISOCYTOSIS (NORMAL)
[2023-06-29] MEDS: DEXTROSE 5% 1,000 ML IV SCH (14:37)
[2023-06-29] MEDS: SODIUM CHLORIDE 0.45% 1,000 ML IV SCH (14:37)
[2023-06-29 17:15] LABS: BASOPHILS % (AUTO) 0.2 %; EOSINOPHILS % (AUTO) 0.5 %; HCT - HEMATOCRIT 23.5 % (37.0-47.0); HGB - HEMOGLOBIN 8.3 g/dL (12.0-16.0); LYMPHOCYTES % (AUTO) 4.9 %; MEAN CORPUSCULAR HEMOGLOBIN 32.7 pg (27.0-31.0); MEAN CORPUSCULAR HGB CONC 35.3 g/dL (32.0-36.0); MEAN CORPUSCULAR VOLUME 92.5 fL (81.0-99.0); NEUTROPHILS % (AUTO) 81.3 %; PLT - PLATELET COUNT 71 10^3/uL (130-450); RED BLOOD COUNT 2.54 10^6/uL (4.20-5.40); RED CELL DISTRIBUTION WIDTH 17.7 % (12.0-15.0); WHITE BLOOD COUNT 22.2 x10^3/uL (4.8-10.8)
[2023-06-29 17:20] LABS: SLIDE REVIEW? Indicated
[2023-06-29 17:21] LABS: ABNORMAL LYMPHS % (MANUAL) 0 %
[2023-06-29 17:23] LABS: CALCIUM 7.5 mg/dL (8.5-10.3); CREATININE 4.1 mg/dL (0.6-1.3); PHOSPHORUS 3.7 mg/dL (2.5-5.0); POTASSIUM 3.8 mmol/L (3.5-4.5)
[2023-06-29 17:44] LABS: BAND NEUTROPHILS % (MANUAL) 6 %; LYMPHOCYTES # (MANUAL) 1.6 10^3/uL (1.5-3.5); LYMPHOCYTES % (MANUAL) 7 %; MONOCYTES # (MANUAL) 1.1 10^3/uL (0.0-1.0); NEUTROPHILS # (MANUAL) 19.5 10^3/uL (1.5-6.6); NUCLEATED RBC (MANUAL) 1 %
[2023-06-29 17:47] LABS: DIFFERENTIAL COMMENT MANUAL DIFFERENTIAL; PLATELET ESTIMATE, MANUAL DECREASED (<130,000) (NORMAL); PLATELET MORPHOLOGY NORMAL APP (NORMAL)
--- NOTE | 2023-06-29 21:15 | DISCHARGE SUMMARY ---
Discharge Summary Admit Date: 06/27/23 Discharge Date: 06/29/23 Discharging Provider: Syd Spence MD Primary Care Provider: Patient has no primary care provider. Code Status: Do Not Attempt Resuscitation Condition at Discharge: Critical Discharge Disposition: 02 Transfer Acute Care Hosp Discharge Facility Name: [facility] - DIAGNOSES Admission Diagnoses: (1) Hyponatremia (2) Acute kidney injury (3) Elevated transaminase level (4) UTI (urinary tract infection) (5) Thrombocytopenia (6) Anemia Discharge Diagnoses with Status of Each Condition: (1) Cholecystitis (2) Hyponatremia (3) Acute kidney injury (4) Elevated transaminase level (5) UTI (urinary tract infection) (6) Thrombocytopenia (7) Anemia - HPI History of Present Illness: Angelic Potter is a 68-year-old woman who presented to the emergency room with a chief complaint of slurred speech. She reports that she stopped eating a pproximately three days ago. She reports she drinks two gin and tonics each night. Patient reportedly called her daughter and informed her shes having difficulty speaking. Her daughter called EMS service and when EMS service arrived, they found her blood sugar to be 38. She was given 500 mL of 10 with resolution of her symptoms.Patient is alert and oriented person time place and situation. She denies fever, chills. She denies abdominal pain. She has no complaints at this time. Initial laboratory up in emergency room revealed a serum sodium of 115, and AI and gap of 14, CM creatinine a 4.5, BUN 40 and a serum glucose of 109. AST is elevated at 110, ALT is 49 and Ill be when its 2.5. PT is 14.1 and INR is 1.3. Blood count was elevated at 11.9 and hematocrit was 30.9. Platelet count is 44K. Blood cultures were drawn in the emergency room and are pending.Patient received 1 g of ceftriaxone in the emergency room. Hospital Course: Patient was admitted to the intensive care unit and treatment was initiated with normal saline for fluid hydration and ceftriaxone was continued. On hospital day #2 treatment was initiated with albumin and a central line was placed for treatment with norepinephrine for possible hepatorenal syndrome. A CT scan of the abdomen pelvis was performed which revealed a distended gallbladder with cholelithiasis. Patient has a positive Jalloh sign and her white blood cell count has significantly increased.This is concern for cholecystitis. Patient's white blood cell count increased from 11.9 K to 18.8 K and her physical exam was significant for a soft abdomen with a positive Jalloh sign that was new since admission. Antibiotic coverage was broadened with Zosyn. Patient also had a significant decrease in her hematocrit from a baseline of 31 to 19. Platelet count decreased from 44 to 18. The patient has received 1 unit of packed red blood cells and 1 unit of platelets and goal is to obtain a hemoglobin/hematocrit of 8/24 and to increase the platelet count to greater than 50 K. The most recent hematocrit posttransfusion of 1 unit of packed red blood cells and 1 unit of platelets is hemoglobin hematocrit 8.3/23.5 and platelet count is 71 K Patient's initial serum sodium was 115 and over the course of her hospitalization has increased to 121. Throughout her hospitalization the patient has remained alert and oriented to person time place and situation and hemodynamically stable. In the unit manager patient received 4 mg of morphine intravenously and since that time patient's mental status has mildly to moderately worsened. Recommend being very conservative with opiates for pain given the fact the patient has hepatic failure and renal failure. The reason for transfer is placement of cholecystectomy tube. Patient has advanced directives. Advance directives were discussed with patient during this hospitalization. Patient is DO NOT RESUSCITATE as stated in her advanced directives. - HOSPITAL COURSE Hospital Course: See HPI - ALLERGIES Allergies/Adverse Reactions: Allergies Allergy/AdvReac Type Severity Reaction Status Date / Time No Known Drug Allergies Allergy Verified 06/27/23 08:56 - MEDICATIONS Home Medications: Ambulatory Orders Medication Instructions Recorded Confirmed Albumin 25% [Albuminar-25] 12.5 gm IV Q6H ml 06/29/23 Norepinephrine/0.9 % Ns [Levophed 8 mg IV .[id number] each 06/29/23 8 mg/250-0.9% NaCl] Piperacillin/Tazobactam [Zosyn] 2.25 gm IV Q8H ml 06/29/23 Simethicone [Mylicon] 80 mg PO Q6HR PRN tab 06/29/23 Sodium Chloride 0.9% [Normal 100 ml IV .Q10H each 06/29/23 Saline 0.9%] - PHYSICAL EXAM AT DISCHARGE General Appearance: positive: No acute distress, Other (Answering some questions but more somnolent throughout the day.) Eyes Bilateral: positive: PERRL, Conjunctivae nml, No scleral icterus Neck: positive: Nml inspection, No JVD, Trachea midline Respiratory: positive: Other (Good air exchange in all lung meek no wheezing no crackles.) Cardiovascular: positive: Other (Positive S1-S2 no extra heart sounds.) Abdomen: positive: Other (Soft. Nondistended hypoactive bowel sounds. Intermittently positive Jalloh sign.) Skin: positive: No rash Extremities: positive: No pedal edema Neurologic/Psychiatric: positive: Motor nml - LABS Result Diagrams: 06/29/23 17:00 06/29/23 17:00 - FOLLOW UP Follow Up: Patient is transferred to [facility] for further care. - TIME SPENT Time Spent in Discharge (Minutes): 45 (Time spent coordinating care, contacting other facilities and discussing clinical course with other physicians was 45 minutes.)
[2023-06-29 21:21] VITALS: BP 132/98; O2SAT 92
== END 2023-06-29 22:18 | disposition short-term general hospital (02) | DRG 641 ==
LOC: EDUNIT# → ED 08:45 → MS3 12:35 → ICU 13:43
PROVIDERS: ADMIT Internal Medicine; ATTEND Internal Medicine
PROC: 30233N1 Transfusion of Nonautologous Red Blood Cells into Peripheral Vein, Percutaneous Approach (ICD-10-PCS; principal; 2023-06-29)
PROC: 05HM33Z Insertion of Infusion Device into Right Internal Jugular Vein, Percutaneous Approach (ICD-10-PCS; 2023-06-29)
PROC: B543ZZA Ultrasonography of Right Jugular Veins, Guidance (ICD-10-PCS; 2023-06-29)
DX: E87.1 Hypo-osmolality and hyponatremia (principal); R47.81 Slurred speech; N17.9 Acute kidney failure, unspecified; N30.01 Acute cystitis with hematuria; R74.01 Elevation of levels of liver transaminase levels; E83.51 Hypocalcemia; D64.9 Anemia, unspecified; D69.6 Thrombocytopenia, unspecified; K70.10 Alcoholic hepatitis without ascites; K80.20 Calculus of gallbladder without cholecystitis without obstruction; E16.2 Hypoglycemia, unspecified; E88.89 Other specified metabolic disorders; R07.9 Chest pain, unspecified; F10.10 Alcohol abuse, uncomplicated; D72.829 Elevated white blood cell count, unspecified; K72.90 Hepatic failure, unspecified without coma; R10.9 Unspecified abdominal pain; Z66 Do not resuscitate
CPT/HCPCS: 36415; 71045; 74176; 80048; 80053; 81001; 82330; 82607; 82746; 83605; 83690; 83735; 84100; 84295; 85025; 85610; 85730; 86850; 86900; 86901; 86920; 87040; 87086; 87150; 87181; 96365; 99285; A9270; G0480; J3411; P9016; P9037; P9047; 81003; 82077